=== PATIENT | female | born 1950 | race Caucasian/White ===

== ENCOUNTER 2016-05-04 10:08 | Emergency (ER) ==
[2016-05-04 10:57] LABS: MANUAL DIFF NEEDED? NO; URINE SOURCE CLEAN CATCH
[2016-05-04 11:01] LABS: BASO% 0.4 % (0.0-0.8); EOS# 0.06 X1000 (0.0-0.7); EOS% 0.6 % (0.0-10.0); HEMATOCRIT 49.5 % (37.0-47.0); HEMOGLOBIN 16.9 g/dL (12.0-16.0); IMM GRAN# 0.03 X1000 (0.0-0.04); IMM GRAN% 0.3 % (0.0-0.5); LYMPH# 2.09 X1000 (1.2-3.4); LYMPH% 22.1 % (20.5-51.1); MCH 30.8 PG (27-31); MCHC 34.1 g/dL (33-37); MCV 90.2 FL (81-99); MONO# 0.52 X1000 (0.11-0.59); MONO% 5.5 % (1.7-9.3); MPV 10.5 FL (7.4-10.4); NEUT% 71.1 % (42.2-75.2); PLT 279 X1000 (130-400); RBC 5.49 XMIL (4.2-5.4)
--- NOTE | 2016-05-04 11:15 | PROVIDER DOCUMENTATION ---
Addendum entered and electronically signed by Mery Sheppard Scribe 05/04/16 13: 23: Departure - Departure Time of Disposition Order: 11:50 DIAGNOSIS: Cystitis, Hematuria Disposition: HOME 01 Certified Medical Emergency: Emergent Condition: Stable Additional Instructions: ED Follow Up Instructions: You have been treated by a care provider in the Emergency Department. These instructions are being provided to you so you can have an understanding of how to care for yourself upon discharge. Upon discharge from the Emergency Department, you are responsible for making arrangements for follow-up care by a physician of your choice. Take all prescribed medications as directed. Return to the Emergency Department immediately for any new or worsening symptoms. You may call the Physician Referral phone number at [phone] to obtain a list of Physicians who are taking new patients. Prescriptions: Nitrofurantoin [place]/Macrocryst [Macrobid] 100 mg PO BID #14 capsule Phenazopyridine HCl [Pyridium] 100 mg PO TID #15 tablet Referrals: Emmy Urrutia MD [Primary Care Provider] - Instructions: Urinary Tract Infection Original Note: HPI-General Adult - General Source: patient - History of Present Illness -Gen Adult Nature of Presenting Problems: 66 y/o F [id number] to ED cc of suprapubic abd pain and blood in urine. Pt does report having L flank pain. Pt denies pain on RLQ/LLQ. Pt also denies having any fever/n/v. Pt reports pain x 2 days. Pt reports this AM having normal urination but pressure increased and pt began to notice blood on urination [employer]. Pt denies history of kidney stones. Pt is alert and oriented. Location of Pain/Injury: reports: abdomen (suprapubic/ L flank) Pain Radiation: reports: no radiation Quality of Pain: reports: aching, pressure Severity: reports: mild Onset/Duration: reports: just prior to arrival Timing: reports: still present Context/Activities at Onset: reports: light activity Modifying Factors: improves with: lying down. worse with: palpation Associated Symptoms: reports: loss of appetite. denies: chest pain, constipation, fever/chills, headaches, sinus congestion/drainage, nausea, shortness of breath, vomiting Similar Symptoms Previously?: No Recently seen or treated by another doctor?: No - General Chief Complaint: UTI Symptoms Stated Complaint: ABD PAIN/BLOOD IN URINE Time Seen by Provider: 05/04/16 10:20 Allergies/Adverse Reactions: Patient Allergies Allergy/AdvReac Type Severity Reaction Status Date / Time promethazine HCl * Allergy Mild FLUSHING Verified 08/21/12 15:25 [From Phenergan] codeine AdvReac ITCHING Verified 02/03/14 15:42 Home Medications: Home Medication List Medication Instructions Recorded Confirmed Last Taken Type Divalproex [Depakote] 250 mg PO BID 08/21/12 02/03/14 02/03/14 History Gabapentin 300 mg PO TID 08/21/12 02/03/14 02/03/14 History SIMVAstatin [Zocor] 40 mg PO QHS 08/21/12 02/03/14 02/03/14 History Trazodone [Desyrel] 50 mg PO QHS 08/21/12 02/03/14 02/02/14 History Losartan/Hydrochlorothiazide 1 tab PO DAILY 01/20/13 02/03/14 02/03/14 History [Losartan-Hctz 50-12.5 mg Tab] Azithromycin [Zithromax Z-Jay] 250 mg PO DIRECTED 02/03/14 02/03/14 02/03/14 History Bisoprolol Fumarate/Hctz 1 each PO DAILY 02/03/14 02/03/14 02/03/14 History [Bisoprolol-Hctz 2.5-6.25 mg Tb] Meclizine HCl [Antivert] 25 mg PO Q4-6H PRN #10 tablet 02/03/14 Unknown Rx Metformin HCl [Metformin HCl ER] 1,500 mg PO HS 02/03/14 02/03/14 02/02/14 History Potassium Chloride [Klor-Con M20] 40 meq PO QPM 02/03/14 02/03/14 02/02/14 History Nitrofurantoin [place]/Macrocryst 100 mg PO BID #14 capsule 05/04/16 Unknown Rx [Macrobid] Phenazopyridine HCl [Pyridium] 100 mg PO TID #15 tablet 05/04/16 Unknown Rx Review of Systems - Adult - REVIEW OF SYSTEMS - ADULT Constitutional: denies: chills, fever Ears, Nose, Mouth & Throat: denies: ear pain, throat pain Cardiovascular: denies: chest pain, palpitations Respiratory: denies: cough, shortness of breath Gastrointestinal: reports: abdominal pain (suprapubic/ L flank pain). denies: diarrhea, nausea, vomiting Genitourinary: reports: dysuria, flank pain, hematuria. denies: incontinence Musculoskeletal: denies: bone pain, back pain Neurological: denies: dizziness/vertigo, headache/migraines Past History - Adult - PAST MEDICAL HISTORY-ADULT Review of Records: reports: Old Records Reviewed, Nursing Assessment Review Major Childhood Illnesses: reports: denies history Cardiovascular: reports: HTN, hyperlipidemia Respiratory: reports: COPD Gastrointestinal: reports: denies history Obstetrical/Gynecological: reports: denies history Genitourinary: reports: denies history Musculoskeletal: reports: denies history Neurological: reports: denies history Endocrine/Immune: reports: denies history Other Conditions: reports: denies history - IMMUNIZATION STATUS Childhood Immunizations: See Nurse Assessment Flu Vaccine: See Nurse Assessment - FAMILY HISTORY Family History: reviewed, not pertinent - SOCIAL HISTORY Smoking: less than 1 pack/day Provider spent 3-5 mins advising pt. on dangers of tobacco.: Discussed manners to quit use, and f/u contacts for add'l counseling. Substance Use: denies Living Situation: family Physical Exam-General - CONSTITUTIONAL General Appearance: appears well, alert, no apparent distress - EYES Eyes: PERRL/EOMI, pink conjunctivae - HEAD, EARS, NOSE, MOUTH & THROAT HENMT: other - RESPIRATORY Respiratory: chest non-tender, lungs clear, normal breath sounds - CARDIOVASCULAR Cardiovascular: normal peripheral pulses, regular rate, rhythm, no edema - GASTROINTESTINAL (ABDOMEN) Abdominal Exam: normal bowel sounds, soft, tenderness (suprapubic/ L flank) - LYMPHATIC Lymphatic: no adenopathy - MUSCULOSKELETAL Back Exam: no CVA tenderness, no vertebral tenderness Extremity: normal range of motion, non-tender, normal gait - SKIN Integumentary: normal color, normal turgor, warm/dry - NEUROLOGIC Neurologic: grossly normal, no motor/sensory deficits - PSYCHIATRIC Psych/Mental Status: normal mood/affect, normal thought content, normal thought process, oriented x 3 Progress - PLAN OF CARE/RESULTS Progress/Plan/Lab Results: PLAN: URINE/ LABS. PT VERBALLY UNDERSTANDS 1150: Pt has been placed in the room. went over labs with pt. Pt understands plan. Laboratory Tests 05/04/16 05/04/16 05/04/16 10:29 10:29 10:29 WBC 9.47 RBC 5.49 H Hgb 16.9 H Hct 49.5 H MCV 90.2 MCH 30.8 MCHC 34.1 RDW Std Deviation 13.6 Plt Count 279 MPV 10.5 H Immature Gran % (Auto) 0.3 Neut % (Auto) 71.1 Lymph % (Auto) 22.1 [place] % (Auto) 5.5 Eos % (Auto) 0.6 Baso % (Auto) 0.4 Immature Gran # (Auto) 0.03 Neut # (Auto) 6.73 H Lymph # (Auto) 2.09 [place] # (Auto) 0.52 Eos # (Auto) 0.06 Baso # (Auto) 0.04 Sodium 138 Potassium 4.3 Chloride 96 L Carbon Dioxide 24 L Anion Gap 18 BUN 5 L Creatinine 0.8 Estimated GFR/1.73 m2 > 60 BUN/Creatinine Ratio 6 Glucose 173 H Calculated Osmolality 277 Calcium 9.6 Total Bilirubin 0.40 AST 16 ALT 16 Alkaline Phosphatase 82 Total Protein 6.5 Albumin 4.2 Globulin 2.3 Albumin/Globulin Ratio 1.8 Amylase 38 Lipase 25 Urine Source CLEAN CATCH Urine Color BROWN Urine Turbidity TURBID Urine pH 7.0 Ur Specific [place] 1.012 Urine Protein 70 A Ur Glucose (Stick) NEGATIVE Ur Ketones (Stick) TRACE A Urine Blood LARGE A Urine Nitrite NEGATIVE Urine Bilirubin NEGATIVE Urobilinogen Dipstick NORMAL Urine Leukocytes LARGE A Urine WBC (Auto) TNTC A Urine RBC (Auto) TNTC A U Epithel Cells (Auto) <10 Urine Bacteria (Auto) NEGATIVE Urine Crystals Not Reportable Small Round Cells Not Reportable Urine Casts NONE SEEN Urine Yeast-like Cells NONE SEEN Orders Category Date Time Status AMYLASE [CHEM] Stat Lab 05/04/16 10:29 Completed CBC WITH ELECTRONIC DIFF [HEME] Stat Lab 05/04/16 10:29 Completed COMPREHENSIVE METABOLIC PANEL [CHEM] Stat Lab 05/04/16 10:29 Completed LIPASE [CHEM] Stat Lab 05/04/16 10:29 Completed UA NIMS W/REFLEX CULT [URINALYSIS] Stat Lab 05/04/16 10:29 Completed URINE CULTURE [RM] Routine Lab 05/04/16 11:32 Received URINE MANUAL MICROSCOPIC [URINALYSIS] Stat Lab 05/04/16 10:29 Completed 0.9% Sodium Chloride Inj [Ns] 1,000 ml Med 05/04/16 11:50 Discontinued IV Wide Open CefTRIAXONE 1 GM/NS [Rocephin 1 gm/Ns] 50 ml Med 05/04/16 11:52 Discontinued IV NOW Vital Signs - 24 hr 05/04/16 05/04/16 10:17 12:59 Temperature 98.4 F Pulse Rate 90 72 Respiratory 20 18 Rate Blood Pressure 163/93 140/66 O2 Sat by Pulse 96 96 Oximetry - REASSESSMENT Reassessment #1 Time Reassessed: 11:50 Status: unchanged (Pt is in no acute distress. Pt is up walking and using the restroom. Labs have returned and has ordered fluids and some antibiotics. Pt and understands the plan.) Departure - Departure Time of Disposition Order: 12:00 Certified Medical Emergency: Emergent - Departure DIAGNOSIS: Cystitis Disposition: HOME 01 Condition: Stable Additional Instructions: ED Follow Up Instructions: You have been treated by a care provider in the Emergency Department. These instructions are being provided to you so you can have an understanding of how to care for yourself upon discharge. Upon discharge from the Emergency Department, you are responsible for making arrangements for follow-up care by a physician of your choice. Take all prescribed medications as directed. Return to the Emergency Department immediately for any new or worsening symptoms. You may call the Physician Referral phone number at [phone] to obtain a list of Physicians who are taking new patients. Prescriptions: Nitrofurantoin [place]/Macrocryst [Macrobid] 100 mg PO BID #14 capsule Phenazopyridine HCl [Pyridium] 100 mg PO TID #15 tablet Referrals: Emmy Urrutia MD [Primary Care Provider] - Instructions: Urinary Tract Infection Attestation - Scribe Verification/Attestation Scribe:: Mery Sheppard Acting as Scribe for:: Moise Gonzalez Scribe documention review:: This chart was documented by a scribe and accurately reflects the service the provider performed and the decisions made by the provider. Physician Attestation
[2016-05-04 11:21] LABS: UR EPITHELIAL CELLS <10 /HPF (<10); URINE BACTERIA NEGATIVE /HPF; URINE MICRO REVIEW NEEDED? YES; URINE RBC TNTC /HPF (<10); URINE WBC TNTC /HPF (<10)
[2016-05-04 11:24] LABS: BILIRUBIN URINE NEGATIVE (NEGATIVE); BLOOD URINE LARGE (NEGATIVE); COLOR BROWN; GLUCOSE URINE NEGATIVE (NEGATIVE); LEUKOCYTES URINE LARGE (NEGATIVE); NITRITE URINE NEGATIVE (NEGATIVE); PROTEIN URINE 70 mg/dL (NEGATIVE); SP GRAVITY URINE 1.012; TURBIDITY URINE TURBID (CLEAR); URINE CULTURE NEEDED? YES; UROBILINOGEN URINE NORMAL (NORMAL)
[2016-05-04 11:28] LABS: URINE CASTS NONE SEEN
[2016-05-04 11:36] LABS: AGAP 18; ALBUMIN 4.2 g/dL (3.5-5.0); ALKALINE PHOSPHATASE 82 U/L (32-104); AMYLASE 38 U/L (20-200); BUN 5 mg/dL (8-22); CALCIUM 9.6 mg/dL (8.8-10.2); CHLORIDE 96 mmol/L (98-107); COSMO 277; GOT 16 U/L (10-30); GPT 16 U/L (10-36); LIPASE 25 U/L (13-60); POTASSIUM 4.3 mmol/L (3.5-5.1); SODIUM 138 mmol/L (136-145); TCO2 24 mmol/L (25-35); TOTAL PROTEIN 6.5 g/dL (6.3-8.3)
[2016-05-04] MEDS ORDERED: NS 1,000 ML IV ONE (11:50)
[2016-05-04] MEDS ORDERED: ROCEPHIN 1 GM/NS 50 ML IV ONE (11:52)
[2016-05-04 13:00] VITALS: BP 140/66
== END 2016-05-04 13:26 | disposition home or self-care (01) ==
LOC: ED 10:08
DX: N30.91 Cystitis, unspecified with hematuria (principal); R10.9 Unspecified abdominal pain; R31.9 Hematuria, unspecified; R30.0 Dysuria; I10 Essential (primary) hypertension; E78.5 Hyperlipidemia, unspecified; J44.9 Chronic obstructive pulmonary disease, unspecified; F17.210 Nicotine dependence, cigarettes, uncomplicated; Z79.899 Other long term (current) drug therapy; Z71.6 Tobacco abuse counseling
CPT/HCPCS: 80053; 81001; 82150; 83690; 85025; 87088; J0696; J7030